=== PATIENT | female | born 1955 | race Caucasian/White ===

== ENCOUNTER 2017-12-07 03:28 | Emergency (ER) | payer OTHER ==
[~2017-12-07] VITALS: Ht 167.6 cm; Wt 62.6 kg
[~2017-12-07 03:28] MED LIST: ASCORBIC ACID500 M3 PO; AZITHROMYCIN250 MG PO; BENADRYL ALLERG25 MG PO; BIOTIN1 MG PO; CEFTIN500 MG PO; FLONASE16 G1 BOTH NARES; FLONASE16 GM; GUAIATUSSIN AC118 ML PO; LEXAPRO10 MG PO; MOTRIN IB200 MG PO; NEXIUM20 MG PO; NOHOMEMEDS; PEPCID20 MG PO; PREDNISONE10 MG PO; VITAMIN D2000 INTUN PO; ZOFRAN ODT4 MG PO; ZOFRAN4 MG PO
[2017-12-07 04:13] LABS: APPEARANCE CLOUDY ((CLEAR)); BILIRUBIN NEGATIVE; BLOOD SMALL; COLOR YELLOW ((YELLOW)); GLUCOSE (STRIP) NEGATIVE; KETONES 5; LEUKOCYTES NEGATIVE; NITRITE NEGATIVE; PROTEIN (STRIP) 30; SPECIFIC GRAVITY 1.024 (1.000-1.030); UROBILINOGEN 0.2 MG/DL (0.2-1.0)
[2017-12-07 04:41] LABS: HEMATOCRIT 34.2 % (36.0-46.0); HEMOGLOBIN 12.1 G/DL (11.9-15.5); MCH 33.2 PG (29.0-34.0); MCHC 35.4 G/DL (30.0-36.0); PLATELET COUNT 202 K/uL (156-360); RBC DIS.WIDTH-CV 12.1 % (11.8-14.6); RBC DIS.WIDTH-SD 42.1 % (39-53); RED BLOOD COUNT 3.64 M/uL (3.80-5.20); WHITE BLOOD COUNT 5.7 K/uL (4.1-10.2)
[2017-12-07 04:50] LABS: ALBUMIN 3.8 g/dL (3.2-4.8)
[2017-12-07 04:50] LABS: BACTERIA 3+ /HPF; EPITHELIAL CELLS RARE /HPF; MUCUS 4+ /LPF; RED BLOOD CELLS 0-5 /HPF (0-5); UCUL ADDED? YES; WHITE BLOOD CELLS 0-5 /HPF (0-5)
[2017-12-07 04:51] LABS: CHLORIDE 107 mEq/L (99-109); POTASSIUM 3.8 mEq/L (3.7-5.4); SODIUM 140 mEq/L (136-147)
[2017-12-07 04:53] LABS: GLUCOSE 97 mg/dL (70-99); TOTAL PROTEIN 6.3 g/dL (6.4-8.3)
[2017-12-07 04:55] LABS: TOTAL BILIRUBIN 0.5 mg/dL (0.0-1.0)
[2017-12-07 04:56] LABS: ALKALINE PHOSPHATASE 56 IU/L (3-129)
[2017-12-07 04:57] LABS: CREATININE 0.7 mg/dL (0.6-1.3); GFR ESTIMATE (CALCULATED) > 59 mL/min/
[2017-12-07 04:58] LABS: AST (GOT) 18 IU/L (2-34); UREA NITROGEN (BUN) 21 mg/dL (9-23)
[2017-12-07 05:00] LABS: ALT (GPT) 19 IU/L (3-49)
[2017-12-07] MEDS ORDERED: ZOFRAN ODT4 MG PO (05:13)
[2017-12-07 05:25] VITALS: BP 124/73
== END 2017-12-07 05:36 | disposition home or self-care (01) ==
LOC: EME 03:28
PROVIDERS: Physician Assistant
DX: R11.2 Nausea with vomiting, unspecified (principal); R19.7 Diarrhea, unspecified; T36.3X5A Adverse effect of macrolides, initial encounter; Z90.710 Acquired absence of both cervix and uterus; Z88.5 Allergy status to narcotic agent
CPT/HCPCS: 80053; 81003; 85027; 87086; 87502; 99281; 99285; J2405; J7030; S0028